=== PATIENT | female | born 1995 | race American Indian/Alaskan Native ===

== ENCOUNTER 2017-05-30 09:51 | Emergency (ER) | payer OTHER ==
[2017-05-30 10:26] VITALS: BP 140/50
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
[2017-05-30] MEDS ORDERED: MOTRIN PO ONE (11:51)
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
== END 2017-05-30 12:10 | disposition home or self-care (01) ==
LOC: ED 09:51
DX: S63.502A Unspecified sprain of left wrist, initial encounter (principal); V89.2XXA Person injured in unspecified motor-vehicle accident, traffic, initial encounter; Y93.89 Activity, other specified; Y92.89 Other specified places as the place of occurrence of the external cause; Y99.8 Other external cause status

== ENCOUNTER 2017-10-01 09:46 | Emergency (ER) | payer OTHER ==
--- NOTE | 2017-10-01 12:06 | Emergency Department Report ---
ED Psych HPI - General Chief Complaint: Anxiety Stated Complaint: MENTAL HEALTH Time Seen by Provider: 10/01/17 11:28 Source: patient Mode of arrival: Ambulatory - History of Present Illness Initial Comments: Patient is a 21-year-old female who is presenting with anxiety type symptoms for the past week. Patient states that she feels overwhelmed and very anxious all the time. Patient states that just with minor life stressors she is finding herself crying. Patient feels that she is having a hard time handling her motions. Patient's had several episodes which she's had shortness of breath and palpitations as well. The patient denies any fevers chills as well as diarrhea - Related Data Previous Rx's Medication Instructions Recorded Last Taken Type Ibuprofen [Motrin 800 MG tab] 800 mg PO ONCE #20 tablet 05/30/17 Unknown Rx ALPRAZolam [Xanax TAB] 0.25 mg PO BID PRN #8 tab 10/01/17 Unknown Rx Allergies Allergy/AdvReac Type Severity Reaction Status Date / Time Sulfa (Sulfonamide Allergy Unknown Verified 05/30/17 10:22 Antibiotics) ED Review of Systems ROS: Stated complaint: MENTAL HEALTH Other details as noted in HPI Comment: All other systems reviewed and negative ED Past Medical Hx - Past Medical History Previous Medical History?: No - Surgical History Past Surgical History?: No - Social History Smoking Status: Never Smoker Substance Use Type: Alcohol - Medications Home Medications: Home Medications Medication Instructions Recorded Confirmed Last Taken Type Ibuprofen [Motrin 800 MG tab] 800 mg PO ONCE #20 tablet 05/30/17 Unknown Rx ALPRAZolam [Xanax TAB] 0.25 mg PO BID PRN #8 tab 10/01/17 Unknown Rx ED Physical Exam - General Limitations: No Limitations General appearance: alert, in no apparent distress - Head Head exam: Present: atraumatic, normocephalic - Eye Eye exam: Present: normal appearance - ENT ENT exam: Present: mucous membranes moist - Neck Neck exam: Present: normal inspection - Respiratory Respiratory exam: Present: normal lung sounds bilaterally. Absent: respiratory distress, wheezes, rales, rhonchi - Cardiovascular Cardiovascular Exam: Present: regular rate, normal rhythm. Absent: systolic murmur, diastolic murmur, rubs, gallop - GI/Abdominal GI/Abdominal exam: Present: soft, normal bowel sounds - Extremities Exam Extremities exam: Present: normal inspection - Back Exam Back exam: Present: normal inspection - Neurological Exam Neurological exam: Present: alert, oriented X3 - Psychiatric Psychiatric exam: Present: normal affect, normal mood - Skin Skin exam: Present: warm, dry, intact, normal color. Absent: rash ED Course Vital Signs 10/01/17 10/01/17 09:58 11:27 Temperature 98.2 F Pulse Rate 64 Respiratory 20 16 Rate Blood Pressure 137/59 O2 Sat by Pulse 100 Oximetry ED Medical Decision Making - Medical Decision Making Patient will be [facility] evaluation. Critical care attestation.: If time is entered above; I have spent that time in minutes in the direct care of this critically ill patient, excluding procedure time. ED Disposition Clinical Impression: Anxiety Disposition: DC-01 TO HOME OR SELFCARE Is pt being admited?: No Does the pt Need Aspirin: No Condition: Stable Prescriptions: ALPRAZolam [Xanax TAB] 0.25 mg PO BID PRN #8 tab PRN Reason: Anxiety Referrals: PRIMARY CARE, [Primary Care Provider] - 3-5 Days
[2017-10-01 12:36] VITALS: BP 132/60
== END 2017-10-01 12:36 | disposition home or self-care (01) ==
LOC: ED 09:46
DX: F41.9 Anxiety disorder, unspecified (principal); Z88.2 Allergy status to sulfonamides
CPT/HCPCS: 99282